=== PATIENT | male | born 1970 | race Caucasian/White ===

== ENCOUNTER 2023-04-22 15:21 | Emergency (ER) | payer OTHER, SELFPAY ==
[2023-04-22 15:25] VITALS: BP 160/85; PULSE 69; RESP 18; TEMP 36.6; O2SAT 99
--- NOTE | 2023-04-22 15:45 | DI.RAD_ITS ---
Exam(s) XR SHOULDER RT COMPLETE 2+V EXAM: XR SHOULDER RT COMPLETE 2+V CLINICAL HISTORY: fall, recent rotator cuff repair. TECHNIQUE: 2D digital imaging was performed. COMPARISON: No exams were available for comparison FINDINGS: 3 views No evidence of acute fracture or dislocation. There is a tiny 1 millimeter calcific density just abo ve the greater tuberosity which probably represents calcific rotator cuff tendinitis. The subacromia l space is not diminished. AC joint unremarkable. Clavicle intact. No adjacent rib fractures IMPRESSION: No fracture or dislocation. Calcific rotator cuff tendinitis. DATA REPOSITORY: RADIATION DOSE DELIVERED:
--- NOTE | 2023-04-22 15:45 | DI.RAD_ITS ---
Exam(s) XR HUMERUS RT EXAM: XR HUMERUS RT CLINICAL HISTORY: fall, right arm pain, recent rotator repair. TECHNIQUE: 2D digital imaging was performed. COMPARISON: No exams were available for comparison FINDINGS: 3 views No evidence of humerus fracture nor dislocation. Bone density normal. No osseous lesions. No radio paque foreign body. IMPRESSION: No fracture of the humerus evident. DATA REPOSITORY: RADIATION DOSE DELIVERED:
--- NOTE | 2023-04-22 15:53 | ED.GENADUL_ITS ---
Discharge Plan Disposition Patient Disposition: Home Condition: Improving Discharge Details Chief Complaint: Orthopedic Clinical Impression: Shoulder pain, Calcific tendinitis Primary Care Provider: Elliott Carpenter ED Provider: Etienne Hayden Discharge Instructions Instructions: Calcific Tendinitis (ED), Shoulder Pain (ED) Additional Instructions: Please follow-up closely with physical therapy and your orthopedic team. Medical Decision Making 52-year-old male 3 weeks post right rotator cuff surgery at [facility] presents after fall from standing onto right shoulder while in his reinforced sling, pain to anterior lateral shoulder and upper arm, no evidence of dehiscence, no deformity, neurovascular exam of limb intact. Consider simple contusion versus surgical hardware disruption versus less likely fracture or dislocation. Will provide analgesia anti-inflammatory. Will obtain x-ray of shoulder and humerus. Likely discharge home with close follow-up with orthopedic team at [facility]. 16: 40 x-ray negative for dislocation or fracture. Evidence of calcific tendinitis. Patient has follow-up with physical therapy tomorrow. We will follow-up with orthopedic team at [facility] in coming weeks. HPI General Date/Time Provider Initiated Documentation: 04/22/23 15:34 . HPI Narrative: 52-year-old male 3 weeks post right rotator cuff surgery at [facility] presents after mechanical slip and fall outside of a store in which she tripped over a hand cart fell onto his right side onto his right shoulder, pain to right shoulder and upper arm. Patient was wearing his sling at the time Related Data Allergies Allergy/AdvReac Type Severity Reaction Status Date / Time Sulfa (Sulfonamide Allergy Intermediate Skin Rash Unverified 04/22/23 15:31 Antibiotics) vancomycin Allergy Intermediate Swelling/Ed Unverified 04/22/23 15:31 vanda General Stated Complaint: Orthopedic SCOTT: 4 Review of Systems Narrative: Review of Systems Constitutional: negative Eyes: negative ENT: negative Cardiovascular: negative Respiratory: negative Gastrointestinal: negative : negative Musculoskeletal: Arm pain Skin: negative Neurologic: negative Psych: negative PFSH All Active Problems (Updated 04/22/23 @ 16:41 by Etienne Hayden MD) Shoulder pain (Acute) Calcific tendinitis (Acute) Social History Smoking risk assessment performed?: No Exam Narrative Exam Narrative: Physical Examination General: alert, awake, cooperative, resting comfortably, no acute distress HEENT: normocephalic, atraumatic; PERRL, EOM intact, conjunctiva normal; no nasal discharge; moist mucous membranes, oral and pharyngeal mucosa normal, tolerating secretions Neck: supple, trachea midline; full ROM Chest: normal to inspection Respiratory: normal respiratory effort, speaking in full sentences Skin: no lesions, rashes or trauma appreciated Neuro: AAOx3, normal speech, moving all extremities Extremities: Right upper extremity in reinforced sling, surgical laparoscopy port sites clean dry intact no dehiscence, no crepitus or deformity to shoulder, tenderness over anterior lateral shoulder and upper humerus, soft compartments, median radial and ulnar nerve distribution sensory exam intact, flexion extension of fingers intact, strong radial pulse. Psych: Appropriate mood and affect Course Vital Signs Vital signs: Vital Signs Temperature 36.6 C 04/22/23 15:25 Pulse 69 04/22/23 15:25 Respiratory Rate 18 04/22/23 15:25 Blood Pressure 160/85 H 04/22/23 15:25 Pulse Oximetry 99 04/22/23 15:25 Temperature 36.6 C 04/22/23 15:25 Temperature Source Skin 04/22/23 15:25 Pulse 69 04/22/23 15:25 Respiratory Rate 18 04/22/23 15:25 Blood Pressure 160/85 H 04/22/23 15:25 Blood Pressure Position Sitting 04/22/23 15:25 Pulse Oximetry 99 04/22/23 15:25 Oxygen Delivery Method Room Air 04/22/23 15:25 Oxygen Flow Rate 0 04/22/23 15:25
[2023-04-22] MEDS: Lidocaine 5% Patch 1 PATCH TP (16:29)
[2023-04-22] MEDS: Ketorolac 15 MG/ML VIAL IM (16:29)
== END 2023-04-22 16:59 | disposition home or self-care (01) ==
PROVIDERS: Emergency Provider Emergency Medicine; PCP Orthopaedic Surgery
DX: M25.511 Pain in right shoulder (principal); M75.31 Calcific tendinitis of right shoulder; W19.XXXA Unspecified fall, initial encounter; Z98.890 Other specified postprocedural states
CPT/HCPCS: 96372; 99284; 73030; 73060; 99283; J1885

== ENCOUNTER 2023-06-07 12:50 | Emergency (ER) | payer OTHER, SELFPAY ==
[2023-06-07 12:56] VITALS: BP 146/78; PULSE 90; RESP 18; TEMP 36.6; O2SAT 94
--- NOTE | 2023-06-07 13:34 | ED.GENADUL_ITS ---
Discharge Plan Disposition Patient Disposition: Home Discharge Details Clinical Impression: COVID-19 Primary Care Provider: Elliott Carpenter ED Provider: Pollo Chairez Home Meds and New Rx's Prescriptions: New Paxlovid 300 mg (150 mg x 2)-100 mg tablets,dose pack See Rx Instructions .ROUTE .COMPLEX Qty: 30 0RF Rx Instructions: take TWO 150 mg tablets of nirmatrelvir with ONE 100 mg tablet of ritonavir twice daily for 5 days Continued citalopram 20 mg tablet 20 mg PO DAILY lamotrigine 200 mg tablet 200 mg PO BID levothyroxine [Synthroid] 125 mcg tablet 125 mcg PO DAILY cholecalciferol (vitamin D3) 50 mcg (2,000 unit) tablet 50 mcg PO DAILY Patient Comments: take 1 tablet by mouth once daily Held simvastatin 20 mg tablet 20 mg PO QPM Hold Instructions: Resume on 06/11/23. Discharge Instructions Instructions: COVID-19 (Coronavirus Disease 2019) (ED) Additional Instructions: Please maintain home isolation for the next 5 days. Wear a high-quality mask if you must be around others at home and in public. Do not go places where you are unable to wear a mask. For travel guidance, see CDC?s Travel webpage. Do not travel. Stay home and separate from others as much as possible. Use a separate bathroom, if possible. Take steps to improve ventilation at home, if possible. Don?t share personal household items, like cups, towels, and utensils. Monitor your symptoms. If you have an emergency warning sign (like trouble breathing), seek emergency medical care immediately. You may end isolation after day 5 if your symptoms are improving and you are fever free for 24 hours without the use of fever reducing medication. If your symptoms are not improving at day 5 continue to isolate until symptoms are improving and you are fever free for 24 hours without the use of fever reducing medication. Please contact your primary care physician to arrange follow-up. Return to the ER immediately for any worsening or new concerning symptoms. Referrals: Elliott Carpenter [Primary Care Provider] - Medical Decision Making 52-year-old male here with cough, rhinorrhea and headache. Spouse sick with COVID. [id number] COVID testing was performed and patient is positive for COVID. He does have some chronic medical problems and may benefit from Paxlovid. Patient's medications were reviewed by pharmacy and they recommend Usual customary discharge instructions were reviewed with the patient and he was encouraged to drink plenty of fluids and allow for plenty of rest. He was encouraged to maintain home isolation. Lab Data Lab results reviewed: Yes I reviewed the patient's lab results. Labs: Laboratory Tests Range/Units 06/07/23 13:52 WBC (4.4-10.8) 10^3/uL 5.97 RBC (4.36-5.78) 10^6/uL 5.28 Hgb (13.5-17.5) g/dL 15.5 Hct (40.0-50.0) % 46.0 MCV (80-95) fL 87 MCH (27.0-33.0) pg 29.4 MCHC (32.0-36.0) % 33.7 RDW (11.8-14.1) % 12.1 Plt Count (130-400) 10^3/uL 202 MPV (8.0-11.0) fL 9.5 Immature Gran % 0.2 Neutrophils % 63.4 Lymphocytes % 20.8 Monocytes % 12.6 Eosinophils % 2.2 Basophils % 0.8 Nucleated RBC % (0.0-0.3) % 0.0 Absolute Neutrophils (1.2-6.7) 10^3/uL 3.79 Absolute Lymphocytes (1.2-3.4) 10^3/uL 1.24 Absolute Monocytes (0.1-0.8) 10^3/uL 0.75 Absolute Eosinophils (0.0-0.7) 10^3/uL 0.13 Absolute Basophils (0.0-0.2) 10^3/uL 0.05 Sodium (136-145) mmol/L 140 Potassium (3.5-5.1) mmol/L 4.2 Chloride (98-107) mmol/L 103 Carbon Dioxide (21.0-32.0) mmol/L 30.0 Anion Gap (3-11) mmol/L 7.0 BUN (7-18) mg/dL 12 Creatinine (0.70-1.30) mg/dL 1.2 Est GFR (CKD-EPI 2020) (mL/min/1.73m2) 72.76 Glucose (74-106) mg/dL 134 H Calcium (8.5-10.1) mg/dL 9.4 Total Bilirubin (0.2-1.0) mg/dL 0.6 AST (15-37) U/L 18 ALT (16-63) U/L 35 Alkaline Phosphatase (46-116) U/L 127 H Total Protein (6.4-8.2) g/dL 7.8 Albumin (3.4-5.0) g/dL 4.2 HPI General Mode of arrival: ambulatory . Date/Time Provider Initiated Documentation: 06/07/23 12:55 . Limitations to Documentation: no limitations . Information obtained by: patient . HPI Narrative: 52-year-old male presents with chief complaint of respiratory illness. Patient notes he has had respiratory illness with cough, runny nose and headache over the past 2 days. Patient notes spouse has tested positive for COVID. He is concerned he may have COVID. He has no associated shortness of breath. Patient is vaccinated and has had COVID in the past, not recently. Related Data Home Medications Medication Instructions Recorded Confirmed cholecalciferol (vitamin D3) 50 50 mcg PO DAILY 06/07/23 06/07/23 mcg (2,000 unit) tablet citalopram 20 mg tablet 20 mg PO DAILY 06/07/23 06/07/23 lamotrigine 200 mg tablet 200 mg PO BID 06/07/23 06/07/23 levothyroxine 125 mcg tablet 125 mcg PO DAILY 06/07/23 06/07/23 (Synthroid) nirmatrelvir 300 mg (150 mg See Rx Instructions PO .COMPLEX 06/07/23 x2)-ritonavir 100 mg tablet,dose #30 dose pk pack (Paxlovid) simvastatin 20 mg tablet 20 mg PO QPM 06/07/23 06/07/23 Previous Rx's Medication Instructions Recorded nirmatrelvir 300 mg (150 mg See Rx Instructions PO .COMPLEX 06/07/23 x2)-ritonavir 100 mg tablet,dose #30 dose pk pack (Paxlovid) Allergies Allergy/AdvReac Type Severity Reaction Status Date / Time Sulfa (Sulfonamide Allergy Intermediate Skin Rash Unverified 06/07/23 13:02 Antibiotics) vancomycin Allergy Intermediate Swelling/Ed Unverified 06/07/23 13:02 vanda General Stated Complaint: GenMedical SCOTT: 4 Review of Systems All systems reviewed & are unremarkable except as noted in HPI and below Constitutional Constitutional: Denies fever(s) Respiratory Respiratory: Reports as per HPI PFSH All Active Problems (Updated 06/07/23 @ 14:21 by Pollo Chairez MD) COVID-19 (Acute) Social History Smoking/Tobacco Use Status: Never Smoking risk assessment performed?: Yes Drug use: Never Substance use type: does not use Housing: apartment Do you feel safe at home: Yes Do you feel safe in your relationship?: Yes Exam Const General: cooperative and no acute distress HENMT Mouth: moist mucous membranes Eyes Conjunctivae: normal conjunctivae Sclera: normal sclerae Resp Auscultation: clear to auscultation bilaterally, no rales, no rhonchi and no wheezes Cardio Rate: regular rate and not tachycardic Rhythm: regular rhythm Neuro General: patient alert, patient awake and tone normal Course Vital Signs Vital signs: Vital Signs Temperature 36.6 C 06/07/23 12:56 Pulse 90 06/07/23 12:56 Respiratory Rate 18 06/07/23 12:56 Blood Pressure 146/78 H 06/07/23 12:56 Pulse Oximetry 94 06/07/23 12:56 Temperature 36.6 C 06/07/23 12:56 Temperature Source Core 06/07/23 12:56 Pulse 90 06/07/23 12:56 Respiratory Rate 18 06/07/23 12:56 Respiratory Effort Normal, Non-Labored 06/07/23 13:05 Blood Pressure 146/78 H 06/07/23 12:56 Blood Pressure Position Sitting 06/07/23 12:56 Pulse Oximetry 94 06/07/23 12:56 Oxygen Delivery Method Room Air 06/07/23 12:56 Oxygen Flow Rate 0 06/07/23 12:56
[2023-06-07 13:59] LABS: Abs Immature Grans 0.01 10^3/uL (0.0-0.06); Absolute Basophil Count 0.05 10^3/uL (0.0-0.2); Absolute Eosinophil Count 0.13 10^3/uL (0.0-0.7); Absolute Lymphocyte Count 1.24 10^3/uL (1.2-3.4); Absolute Monocyte Count 0.75 10^3/uL (0.1-0.8); Absolute Neutrophil Count 3.79 10^3/uL (1.2-6.7); Basophils % 0.8; Eosinophils % 2.2; HGB 15.5 g/dL (13.5-17.5); Immature Grans % 0.2; Lymphocytes % 20.8; MCH 29.4 pg (27.0-33.0); MCHC 33.7 % (32.0-36.0); MCV 87 fL (80-95); MPV 9.5 fL (8.0-11.0); Monocytes % 12.6; Neutrophils % 63.4; Platelet Count 202 10^3/uL (130-400); RBC 5.28 10^6/uL (4.36-5.78); RDW 12.1 % (11.8-14.1); RDW-SD 38.6 fL; WBC 5.97 10^3/uL (4.4-10.8)
[2023-06-07 14:14] LABS: ALT 35 U/L (16-63); AST 18 U/L (15-37); Albumin 4.2 g/dL (3.4-5.0); Alkaline Phosphatase 127 U/L (46-116); BUN 12 mg/dL (7-18); Bilirubin, Total 0.6 mg/dL (0.2-1.0); CREATININE 1.2 mg/dL (0.70-1.30); Calcium 9.4 mg/dL (8.5-10.1); Chloride 103 mmol/L (98-107); Estimated GFR 72.76 (mL/min/1.73m2); Glucose 134 mg/dL (74-106); Potassium 4.2 mmol/L (3.5-5.1); Sodium 140 mmol/L (136-145); Total Protein 7.8 g/dL (6.4-8.2)
[2023-06-07 14:50] VITALS: TEMP 36.6
== END 2023-06-07 15:04 | disposition home or self-care (01) ==
PROVIDERS: Emergency Provider Student in an Organized Health Care Education/Training Program; PCP Orthopaedic Surgery
DX: R51.9 Headache, unspecified (principal); U07.1 COVID-19; R05.9 Cough, unspecified
CPT/HCPCS: 80053; 87426; 87635; 99283; 85025; 99284